=== PATIENT | female | born 2000 | race Caucasian/White ===

== ENCOUNTER 2024-10-08 17:18 | Outpatient (CLI) | payer OTHER, SELFPAY ==
[2024-10-08] VITALS (8 sets, daily range): BP systolic 128–140; BP diastolic 81–96; PULSE 84–103; BMI 31.6
[2024-10-08 18:07] LABS: Basophils Absolute Auto 0.1 K/mm3 (0.0-0.1); Basophils Percent Auto 0.4 % (0.2-1.2); Eosinophils Absolute Auto 0.1 K/mm3 (0-0.3); Eosinophils Percent Auto 0.5 % (0-4.4); Hematocrit 32.7 % (37.0-47.0); Hemoglobin 10.6 g/dL (12.0-15.0); Immature Granulocyte Absolute 0.09 K/mm3 (0.00-0.031); Immature Granulocyte Percent A 0.7 % (0-0.5); Lymphocytes Absolute Auto 2.72 K/mm3 (0.9-3.2); Mean Corpuscular HGB Conc 32.4 g/dl (32-36); Mean Corpuscular Hemoglobin 26.8 pg (26-34); Mean Corpuscular Volume 82.8 fl (80-100); Mean Platelet Volume 10.6 fl (7.4-10.4); Monocytes Absolute Auto 1.1 K/mm3 (0.1-0.6); Monocytes Percent Auto 8.2 % (2.6-8.5); Neutrophils Absolute Auto 8.9 K/mm3 (1.3-6.7); Neutrophils Percent Auto 69.2 % (45.5-73.1); Platelet Count Result 283 k/mm3 (150-375); Red Blood Count 3.95 M/mm3 (4.2-5.4); Red Cell Distribution Width 13.5 % (11.5-14.5); White Blood Count 12.9 K/mm3 (4.5-10.0)
[2024-10-08 18:12] LABS: Add Urine Microscopic? YES; Appearance Urine Clear (Clear); Bacteria Urine None Seen /hpf; Bilirubin Urine Negative (Negative); Blood Urine Negative (Negative); Color Urine Yellow (Yellow); Glucose Urine UA 1+ mg/dL (Negative); Ketones Urine Negative (Negative); Leukocyte Esterase Ur Trace LEU/UL (Negative); Nitrate Urine Negative (Negative); Non Pathogenic Casts 0-2; Protein Urine Negative (Negative); RBC Urine 0-2 /hpf (0-2); Specific Grav Ur 1.005 (1.001-1.035); Squamous Epithelial Cell Urine Occasional /hpf (Few); Urobilinogen Urine 0.2 mg/dL (<2.0); pH Urine 6.5 (5.0-9.0)
[2024-10-08 18:17] LABS: Alanine Aminotransferase 16 U/L (6-35); Albumin Level 3.4 g/dL (3.5-5.1); Alkaline Phosphatase 125 U/L (38-126); Anion Gap 11 mmol/L (4-12); Aspartate Amino Transferase 19 U/L (14-36); Bilirubin,Total 0.3 mg/dL (0.2-1.3); Blood Urea Nitrogen 7 mg/dL (7-17); Calcium 8.6 mg/dL (8.4-10.2); Carbon Dioxide 19 mmol/L (22-30); Chloride 105 mmol/L (98-107); Estimated Glomerular Filt Rate > 60; Glucose 115 mg/dL (65-110); Potassium 3.6 mmol/L (3.4-5.0); Sodium 135 mmol/L (137-145); Uric Acid 3.5 mg/dL (2.5-7.5)
[2024-10-08 18:18] LABS: Creatinine Urine 23.4 mg/dL; Total Protein Urine Random 27 mg/dL; Ur Ttl Prot Creatinine Ratio 1.15 mg/mg (0-0.20)
== END 2024-10-08 19:50 | disposition home or self-care (01) ==
LOC: ANHOBOP 17:24 → ANHOBPP 17:26
PROVIDERS: PCP Emergency Medicine; Visit Provider Obstetrics & Gynecology
DX: O13.9 Gestational [pregnancy-induced] hypertension without significant proteinuria, unspecified trimester (principal); Z3A.00 Weeks of gestation of pregnancy not specified
CPT/HCPCS: 36415; 59025; 80053; 81001; 82570; 84156; 84550; 85025; 87086

== ENCOUNTER 2024-10-20 11:47 | Outpatient (RCR) | payer OTHER, SELFPAY ==
[2024-10-10 10:55] VITALS: BP 132/82; PULSE 88
[2024-10-13 12:37] VITALS: BP 132/81; PULSE 85
[2024-10-17 09:56] LABS: Basophils Percent Auto 0.3 % (0.2-1.2); Eosinophils Absolute Auto 0.1 K/mm3 (0-0.3); Eosinophils Percent Auto 0.7 % (0-4.4); Hematocrit 35.4 % (37.0-47.0); Immature Granulocyte Absolute 0.13 K/mm3 (0.00-0.031); Lymphocytes Absolute Auto 2.76 K/mm3 (0.9-3.2); Lymphocytes Percent Auto 20.6 % (18.3-44.2); Mean Corpuscular HGB Conc 31.1 g/dl (32-36); Mean Corpuscular Hemoglobin 26.4 pg (26-34); Mean Corpuscular Volume 84.9 fl (80-100); Mean Platelet Volume 10.9 fl (7.4-10.4); Monocytes Absolute Auto 0.8 K/mm3 (0.1-0.6); Monocytes Percent Auto 5.6 % (2.6-8.5); Neutrophils Absolute Auto 9.7 K/mm3 (1.3-6.7); Neutrophils Percent Auto 71.8 % (45.5-73.1); Platelet Count Result 275 k/mm3 (150-375); Red Blood Count 4.17 M/mm3 (4.2-5.4); Red Cell Distribution Width 14.5 % (11.5-14.5); White Blood Count 13.4 K/mm3 (4.5-10.0)
[2024-10-17 10:06] LABS: Alanine Aminotransferase 17 U/L (6-35); Albumin Level 3.2 g/dL (3.5-5.1); Alkaline Phosphatase 141 U/L (38-126); Anion Gap 8 mmol/L (4-12); Aspartate Amino Transferase 19 U/L (14-36); Bilirubin,Total 0.3 mg/dL (0.2-1.3); Blood Urea Nitrogen 7 mg/dL (7-17); Calcium 8.9 mg/dL (8.4-10.2); Carbon Dioxide 22 mmol/L (22-30); Chloride 105 mmol/L (98-107); Estimated Glomerular Filt Rate > 60; Glucose 137 mg/dL (65-110); Potassium 4.5 mmol/L (3.4-5.0); Sodium 135 mmol/L (137-145); Uric Acid 3.6 mg/dL (2.5-7.5)
[2024-10-17 10:16] VITALS: BP 128/86; PULSE 91
--- NOTE | ~2024-10-20 | US_ITS ---
EXAMINATION: US OB BPP wo non-stress DATE: 10/13/2024 13:06 INDICATION: Preeclampsia. Assess amniotic fluid index. TECHNIQUE: Real-time pelvic ultrasound was performed. The interpreting radiologist was not present fo r the study. COMPARISON: None. FINDINGS: There is a single living fetus in vertex presentation. The placenta is anterior and not low-lying. F etal heart rate is 146 beats per minute (bpm). Normal amniotic fluid index measuring 22.2 cm (5th%-95 %: 7.9-24.9 cm at C5 weeks estimated gestational age) Biophysical profile performed by the technologist: breathing (30 sec sustained breathing in 30 minutes): 2 out of 2 movement (3 gross body movements in 30 minutes): 2 out of 2 tone (one episode of rmbvmcd-yokcmawzj-jxnwwrn limb movement): 2 out of 2 Amniotic fluid pocket (2 cm): 2 out of 2 Total score: 8 out of 8 IMPRESSION: 1. Single living fetus in vertex presentation with heart rate of 146 bpm. 2. Biophysical profile 8 out of 8. 3. Normal amniotic fluid index of 22.2 cm. Reviewed, dictated and finalized at location B. SUPPLIER
--- NOTE | ~2024-10-20 | US_ITS ---
EXAMINATION: US OB BPP wo non-stress DATE: 10/10/2024 10:54 INDICATION: Preeclampsia. Third trimester. TECHNIQUE: Real-time pelvic ultrasound was performed. COMPARISON: Ultrasound 10/01/2024 FINDINGS: There is a single living fetus in vertex presentation. The placenta is anterior. heart rate is 159 beats per minute (bpm). Biophysical profile performed by the technologist: breathing (30 sec sustained breathing in 30 minutes): 2 out of 2 movement (3 gross body movements in 30 minutes): 2 out of 2 tone (one episode of ktpfmas-wspjgtatv-iofcqjm limb movement): 2 out of 2 Amniotic fluid pocket (2 cm): 2 out of 2 Total score: 8 out of 8 IMPRESSION: 1. Single living fetus in vertex presentation. 2. Biophysical profile 8 out of 8. Reviewed, dictated and finalized at location B. UNITY LIFE DIRECTOR
--- NOTE | ~2024-10-20 | US_ITS ---
EXAMINATION: US OB BPP wo non-stress DATE: 10/20/2024 13:36 INDICATION: Preeclampsia during third trimester TECHNIQUE: Real-time pelvic ultrasound was performed. The interpreting radiologist was not present fo r the study. COMPARISON: None. FINDINGS: There is a single living fetus in vertex presentation. The placenta is anterior. heart rate is 150 beats per minute (bpm). Biophysical profile performed by the technologist: breathing (30 sec sustained breathing in 30 minutes): 2 out of 2 movement (3 gross body movements in 30 minutes): 2 out of 2 tone (one episode of dkfjyre-fcpudpmxl-oavonfi limb movement): 2 out of 2 Amniotic fluid pocket (2 cm): 2 out of 2 Total score: 8 out of 8 IMPRESSION: 1. Single living fetus in vertex presentation with heart rate of 150 bpm. 2. Biophysical profile 8 out of 8. Reviewed, dictated and finalized at location B. RANCE ASSOCIATE
[2024-10-20 13:04] VITALS: BP 135/83; PULSE 107
== END 2024-11-14 16:47 | disposition home or self-care (01) ==
LOC: ANHOBOP 11:47
PROVIDERS: Obstetrics & Gynecology; PCP Emergency Medicine; Visit Provider Obstetrics & Gynecology
DX: O14.90 Unspecified pre-eclampsia, unspecified trimester (principal)
CPT/HCPCS: 36415; 59025; 76819; 80053; 84550; 85025

== ENCOUNTER 2024-10-23 21:13 | Inpatient (IN) | payer OTHER, SELFPAY ==
[2024-10-22] VITALS (17 sets, daily range): BP systolic 124–150; BP diastolic 67–110; PULSE 81–116; TEMP 36.6–36.8; BMI 31.8
[2024-10-22 17:46] LABS: Basophils Percent Auto 0.3 % (0.2-1.2); Eosinophils Absolute Auto 0.1 K/mm3 (0-0.3); Eosinophils Percent Auto 0.8 % (0-4.4); Hemoglobin 10.9 g/dL (12.0-15.0); Immature Granulocyte Absolute 0.07 K/mm3 (0.00-0.031); Immature Granulocyte Percent A 0.6 % (0-0.5); Lymphocytes Absolute Auto 2.69 K/mm3 (0.9-3.2); Lymphocytes Percent Auto 22.8 % (18.3-44.2); Mean Corpuscular HGB Conc 32.1 g/dl (32-36); Mean Corpuscular Hemoglobin 26.5 pg (26-34); Mean Corpuscular Volume 82.7 fl (80-100); Mean Platelet Volume 11.1 fl (7.4-10.4); Monocytes Absolute Auto 0.9 K/mm3 (0.1-0.6); Monocytes Percent Auto 7.6 % (2.6-8.5); Neutrophils Percent Auto 67.9 % (45.5-73.1); Nucleated Red Blood Cells Perc 0.2 % (0.0-0.2); Platelet Count Result 301 k/mm3 (150-375); Red Blood Count 4.11 M/mm3 (4.2-5.4); Red Cell Distribution Width 14.6 % (11.5-14.5); White Blood Count 11.8 K/mm3 (4.5-10.0)
[2024-10-22] MEDS: DINOPROSTONE 10 MG VAG INSERT VAGINAL (17:56)
[2024-10-22 17:57] LABS: Alanine Aminotransferase 18 U/L (6-35); Albumin Level 3.3 g/dL (3.5-5.1); Alkaline Phosphatase 145 U/L (38-126); Anion Gap 11 mmol/L (4-12); Aspartate Amino Transferase 19 U/L (14-36); Bilirubin,Total 0.3 mg/dL (0.2-1.3); Blood Urea Nitrogen 8 mg/dL (7-17); Calcium 8.9 mg/dL (8.4-10.2); Carbon Dioxide 20 mmol/L (22-30); Chloride 104 mmol/L (98-107); Estimated Glomerular Filt Rate > 60; Glucose 151 mg/dL (65-110); Potassium 3.5 mmol/L (3.4-5.0); Sodium 135 mmol/L (137-145)
--- NOTE | 2024-10-22 18:00 | LDADM ---
This patient, Kishore Booth, was admitted to Labor/Delivery/Recovery 104 on 10/22/24 at 16:50. Plans for labor, pain management and were discussed with patient. Patient/family oriented to hospital policies and general routines including ID bracelet, bed and alarms, visiting hours, pain management, procedures, bathroom and other care routines, personal items, smoking policy, room service/diet and guest tray routines, infant security routines, and visiting hours. Patient/Family are encouraged to report perceived risks to care and to ask questions if they do not understand what they are told or what they should do. See OBIX for further documentation.
[2024-10-22 18:07] LABS: Uric Acid 3.6 mg/dL (2.5-7.5)
[2024-10-22 18:19] LABS: Rapid Plasma Reagin Non-Reactive (NonReactive)
[2024-10-22] MEDS: LACTATED RINGERS 1,000 ML 125 ML IV CONT (18:26)
[2024-10-22] MEDS: AMPICILLIN 2 GM/NS 100 ML 2 GM/100 ML BAG IVPB (18:26)
[2024-10-22 18:37] LABS: HIV 1/2 Ab P24 Ag Result Negative (Negative)
[2024-10-23] VITALS (333 sets, daily range): BP systolic 99–150; BP diastolic 50–108; PULSE 52–166; RESP 12–21; TEMP 36.4–36.9; O2SAT 93–100
[2024-10-23] MEDS: fentaNYL CITRATE INJ (*CRX) 100 MCG/2 ML VIAL 50 MCG IV PUSH (01:03)
--- NOTE | 2024-10-23 03:00 | P.PNAN_ITS ---
Anes - Initial Pre Proc Eval Procedure: labor epidural Date/Time: 10/23/24 03:00 Surgeon: Brenda Cancino MD Pre Op Diagnosis: labor pain Pre Op Diagnosis: IOL Patient Data Age: 24 Gender: F Height: 1.68 m Weight: 89.5 kg Last Vital Signs Temp 36.6 C 10/22/24 19:00 Pulse 83 10/23/24 02:57 BP 131/83 10/23/24 02:57 Pulse Ox 98 10/23/24 02:55 O2 Del Method Room Air 10/22/24 17:59 Allergies Allergy/AdvReac Type Severity Reaction Status Date / Time nesquick Allergy hives Uncoded 10/21/24 08:04 Home Medications ?Medication ?Instructions ?Recorded ?Confirmed ?Type docosahexaenoic acid 200 mg 200 mg PO DAILY 07/02/24 10/22/24 History capsule ( DHA) ferrous sulfate 325 mg (65 mg 325 mg PO DAILY 10/08/24 10/22/24 History iron) tablet (Feosol) famotidine 20 mg tablet (Acid 20 mg PO HS 10/15/24 10/22/24 History Controller) Laboratory Tests 10/22/24 10/22/24 17:03 17:03 WBC 11.8 H K/mm3 (4.5-10.0) RBC 4.11 L M/mm3 (4.2-5.4) Hgb 10.9 L g/dL (12.0-15.0) Hct 34.0 L % (37.0-47.0) MCV 82.7 fl (80-100) MCH 26.5 pg (26-34) MCHC 32.1 g/dl (32-36) RDW 14.6 H % (11.5-14.5) Plt Count 301 k/mm3 (150-375) MPV 11.1 H fl (7.4-10.4) Immature Gran % (Auto) 0.6 H % (0-0.5) Neut % (Auto) 67.9 % (45.5-73.1) Lymph % (Auto) 22.8 % (18.3-44.2) [place] % (Auto) 7.6 % (2.6-8.5) Eos % (Auto) 0.8 % (0-4.4) Baso % (Auto) 0.3 % (0.2-1.2) Lymph # (Auto) 2.69 K/mm3 (0.9-3.2) [place] # (Auto) 0.9 H K/mm3 (0.1-0.6) Eos # (Auto) 0.1 K/mm3 (0-0.3) Baso # (Auto) 0.0 K/mm3 (0.0-0.1) Abs Immat Gran (auto) 0.07 H K/mm3 (0.00-0.031) Absolute Neuts (auto) 8.0 H K/mm3 (1.3-6.7) Absolute Nucleated RBC 0.020 H K/mm3 (0.0-0.012) Nucleated RBC % 0.2 % (0.0-0.2) Sodium 135 L mmol/L (137-145) Potassium 3.5 mmol/L (3.4-5.0) Chloride 104 mmol/L (98-107) Carbon Dioxide 20 L mmol/L (22-30) Anion Gap 11 mmol/L (4-12) BUN 8 mg/dL (7-17) Creatinine 0.49 L mg/dL (0.7-1.0) Estim Creat Clear Calc Not Reportable Estimated GFR > 60 (59 - ) Glucose 151 H mg/dL (65-110) Uric Acid Cancelled 3.6 mg/dL (2.5-7.5) Calcium 8.9 mg/dL (8.4-10.2) Total Bilirubin 0.3 mg/dL (0.2-1.3) AST 19 U/L (14-36) ALT 18 U/L (6-35) Alkaline Phosphatase 145 H U/L (38-126) Total Protein 7.0 g/dL (6.3-8.2) Albumin 3.3 L g/dL (3.5-5.1) RPR Non-reactive (NonReactive) HIV 1&2 Ab/P24 Ag 4thGn Negative (Negative) Blood Type A Positive Antibody Screen Negative Patient hx anesthesia problems: none Family hx anesthesia problems: none Results Review: All pre-operative results and documents have been reviewed as part of the pre- operative evaluation. [facility] Past Medical History Medical History (Updated 10/22/24 @ 17:07 by Brenda Cancino MD) Pre-eclampsia Abnormal glucose tolerance in Depression Anxiety Surgical History Surgical History H/O wisdom tooth extraction Family History Family History Father Depression Mother Depression Hypertension Hyperlipidemia Grandparent Alcohol abuse Cancer Social History Social History Smoking status: Former smoker Tobacco type: e-cigarettes/vaping Smoking end date: 01/16/24 Alcohol intake: former Substance use: never Substance use type: marijuana Last use: January 2024 Do You Feel Safe in your Home?: Yes Lack of Transportation: No Lack of Food: Never True Current Housing: I Have Housing Concerned About Future Housing: No Difficulty Paying Gas/Electric Bills: No Difficulty Paying for Meds: No Currently Unemployed: No Education: Trade/Vocational Certificate Difficulty w/ Childcare or Family Care: No Living arrangements: with family Occupation/Education: occupation Additional occupation/education comments: [employer] Gender identity (if verbalized by the patient): Female Sexual Orientation (if Verbalized by the Patient): Straight or Heterosexual Spiritual care concerns: No Anes - Eval Final PreProcedure Day of Procedure 10/23/24 03:00 Patient weight: normal Heart: regular rate and rhythm Lungs: normal air movement Airway: Mallampati scale class II Neurological: alert and oriented ASA classification: II Anesthetic plan: proceed Anesthesia type and monitoring: regional epidural and standard monitoring Results Review: All pre-operative results and documents have been reviewed as part of the pre- operative evaluation. Informed Consent: The patient's anesthetic plan and its attendant risks and benefits were discussed with the patient/family/POA. Questions were solicited and answers provided to the satisfaction of the patient/family/POA.
[2024-10-23] MEDS: LACTATED RINGERS 1,000 ML 125 ML IV CONT ×3 (03:27→18:31)
[2024-10-23] MEDS: AMPICILLIN 1 GM/NS 50 ML 1 GM/50 ML BAG IVPB ×6 (04:00→20:25)
--- NOTE | 2024-10-23 07:01 | P.HP_ITS ---
H&P: HPI History of Present Illness Date/Time: 10/22/24 17:04 Chief Complaint: medical IOL Narrative: Kishore is a 24yo @ 37.1wks who presented overnight for medical IOL due to a diagnosis of pre-eclampsia without severe features. She has been undergoing testing twice weekly (2x/wk NST, weekly BPP/blood work)-- which has all been reassuring. She denies any symptoms of severe features. She feels good movement. No vaginal bleeding or leakage of fluid. Her is complicated by: - Late care, first visit @ 22wk - Depression/anxiety w/ h/o suicide attempt- no meds - Non-immune to CMV, varicella, rubella - Pre-eclampsia w/o severe features; twice weekly NST/ weekly labs/BPP, IOL 37wks - GBS positive - Elevated 1 hour; 3 hour not completed Review of Systems Constitutional: Constitutional: Denies chills, Denies fever(s) and Denies headache(s) Eyes: Eyes: Denies change in vision ENT: Denies headache(s) Cardiovascular: Cardiovascular: Denies chest pain and Denies dyspnea Respiratory: Respiratory: Denies dyspnea Genitourinary: Genitourinary: Denies abnormal vaginal bleeding and Denies vaginal discharge Neurologic: Denies headache(s) Psychiatric: Psychiatric: Denies anxiety and Denies depression [facility] Past Medical History Medical History (Updated 10/22/24 @ 17:07 by Brenda Cancino MD) Pre-eclampsia Abnormal glucose tolerance in Depression Anxiety Surgical History Surgical History H/O wisdom tooth extraction Family History Family History Father Depression Mother Depression Hypertension Hyperlipidemia Grandparent Alcohol abuse Cancer Social History Social History Smoking status: Former smoker Tobacco type: e-cigarettes/vaping Smoking end date: 01/16/24 Alcohol intake: former Substance use: never Substance use type: marijuana Last use: January 2024 Do You Feel Safe in your Home?: Yes Lack of Transportation: No Lack of Food: Never True Current Housing: I Have Housing Concerned About Future Housing: No Difficulty Paying Gas/Electric Bills: No Difficulty Paying for Meds: No Currently Unemployed: No Education: Trade/Vocational Certificate Difficulty w/ Childcare or Family Care: No Living arrangements: with family Occupation/Education: occupation Additional occupation/education comments: [employer] Gender identity (if verbalized by the patient): Female Sexual Orientation (if Verbalized by the Patient): Straight or Heterosexual Spiritual care concerns: No Meds Home Medications and Allergies Home Medications ?Medication ?Instructions ?Recorded ?Confirmed ?Type docosahexaenoic acid 200 mg 200 mg PO DAILY 07/02/24 10/22/24 History capsule ( DHA) ferrous sulfate 325 mg (65 mg 325 mg PO DAILY 10/08/24 10/22/24 History iron) tablet (Feosol) famotidine 20 mg tablet (Acid 20 mg PO HS 10/15/24 10/22/24 History Controller) Allergies Allergy/AdvReac Type Severity Reaction Status Date / Time nesquick Allergy hives Uncoded 10/21/24 08:04 Exam Const: General: cooperative, healthy appearing, comfortable and no acute dis tress Orientation/consciousness: patient oriented x3 Resp: Effort & Inspection: normal respiratory effort Cardio: Rate: regular rate GI: GI Palp: No abdominal tenderness : Other: FHT's: 140's/ mod cecilia/ + accels/ no decels - cat 1 TOCO: ctxs q2-3min Cervix: 3.5/50/-3 Membranes: AROM @ 0712, clear, copious Presentation: cephalic Skin: General skin exam: normal color Neuro: General: patient oriented x3 Extrem: General: normal to inspection Psych: Appearance: grossly normal Affect: normal affect Attitude: cooperative Assessment and Plan Assessment and plan (1) Pre-eclampsia: Qualifiers: Trimester: third trimester Qualified Code(s): O14.93 - Unspecified pre- eclampsia, third trimester Code(s): O14.90 - Unspecified pre-eclampsia, unspecified trimester Status: Acute (2) Positive GBS test: Code(s): B95.1 - Streptococcus, group B, as the cause of diseases classified elsewhere Status: Acute Plan - Medical IOL due to pre-eclampsia indicated as she is 37 weeks - S/p cervidil overnight; cervix favorable - AROM, clear-- IUPC placed on this exam - High dose pitocin per protocol - Pt asymptomatic, BPs in normal/moderate range; anti-hypertensives per protocol and magnesium sulfate with any severe range BPs - Continuous monitoring; currently reassuring - GBS positive; getting ampicillin per protocol - Anesthesia consult PRN pain
[2024-10-23] MEDS: OXYTOCIN 30 UNITS/NS 500 ML 30 UNITS/500 ML BAG 6 UNITS IV CONT (07:03)
[2024-10-23] MEDS: FAMOTIDINE 20 MG/2 ML VIAL IV PUSH ×2 (08:17→21:25)
--- NOTE | 2024-10-23 11:48 | PM.OBPNLAB ---
Pain Control Date/time seen: 10/23/24 11:48 Pain control: epidural Pelvic Exam Dilation (cm): 5 Effacement (%): 70 station: -3 Amniotic membrane status: Ruptured (AROM, clear) Contractions Monitor mode: Internal Contraction frequency: 2 Contraction pattern: Irregular Contraction intensity: Moderate Status status: Category l Assessment and Plan Pitocin rate (mU/min): 6 Assessment: induction ongoing Plan: continuous present management Comments: - contractions adequate strength, but pattern has been slightly irregular with tripling/coupling, now more regular - head asynclitic and attempted to be rotated, ROT now - Has had some decelerations, but overall reassuring now - making good cervical change otherwise - asymptomatic; bps in normal range - continue gbs ppx
[2024-10-23] MEDS: SODIUM CHLORIDE 0.9% IV 300 ML 600 ML I-UTERINE (15:18)
[2024-10-23] MEDS: CALCIUM CARBONATE (TUMS) 500 MG (200 MG ELEMENTAL) PO (16:49)
--- NOTE | 2024-10-23 16:56 | PM.OBPNLAB ---
Pain Control Date/time seen: 10/23/24 16:56 Pain control: epidural Pelvic Exam Dilation (cm): 6 Effacement (%): 80 station: -2 Amniotic membrane status: Ruptured (AROM, clear) Contractions Monitor mode: Internal Contraction frequency: 2 Contraction pattern: Irregular Contraction intensity: Moderate Status status: Category ll Comments: occasional periods of minimal variability; but responded to position change/cervical check Have also had intermittent decelerations Assessment and Plan Pitocin rate (mU/min): 10 Assessment: active labor Plan: continuous present management Comments: - monitoring tracing closely; overall category 2 but reassuring - discussed pt now 6cm and needs to continue to make cervical change; plan for recheck in 2 hours; if no change in 4 hours, will be for as her MVU's are adequate
[2024-10-23] MEDS: ONDANSETRON INJ 4 MG/2 ML VIAL IV PUSH (18:06)
--- NOTE | 2024-10-23 21:20 | PM.OBPNLAB ---
Pain Control Date/time seen: 10/23/24 21:20 Pain control: epidural Pelvic Exam Dilation (cm): 6 Effacement (%): 80 station: -2 Amniotic membrane status: Ruptured (AROM, clear) Contractions Monitor mode: Internal Contraction frequency: 2 Contraction pattern: Irregular Contraction intensity: Moderate Status status: Category ll Assessment and Plan Plan: Comments: she has been ruptured with IUPC and pitocin augmentation with adequate contractions without any cervical casino change attendant the last 4 hours-- now meeting criteria for arrest of active phase
--- NOTE | 2024-10-23 21:22 | WPDHPUPDATE1 ---
History and Physical Update Update Date/Time: 10/23/24 21:22 History and Physical has been reviewed, including an updated exam of the patient. There are NO changes in the patient's condition. Risks, benefits, and alternatives have been discussed and questions answered. Patient agrees to proceed with primary section.
[2024-10-23] MEDS: ACETAMINOPHEN 500 MG TABLET 1000 MG PO (21:25)
[2024-10-23] MEDS: AZITHROMYCIN 500 MG/NS 250 ML 500 MG/250 ML BAG 250 MG IVPB (21:33)
[2024-10-23] MEDS: ceFAZolin 2 GM/D5W 50 ML 2 GM/50 ML BAG IVPB (21:33)
--- NOTE | 2024-10-23 22:35 | W.PM.OBCSD ---
OB - Delivery Note Procedure Delivery date: 10/23/24 Pre-op diagnosis: Arrest of Dilation, Decelerations, Positive Group B Strep (GBS) and Preeclampsia w/o severe features Post-op Diagnosis: Same Induction method: Per Cervidil Protocol Delivery augmentation: Rupture of Membranes and Pitocin Delivery monitor: External FHT and Internal Uterine Prior to decision for section, ACOG/SMFM labor guidelines were considered and discussed with the patient and staff. Decision made to proceed with the section.: Yes Procedure Performed: Primary Primary branch: low cervical, transverse Surgeon: Brenda Cancino MD Anesthesia type: Epidural Description of Procedure/Findings: Male , direct OP position, nuchal cord x2 (loose and reduced), clear fluid. Normal fallopian tubes and ovaries bilaterally. Good hemostasis at end of case. Specimen: Yes (placenta) Estimated Blood Loss: 320 IV Fluids: 1,500 Urine Output: 125 Pathology: Yes Complications: No immediate complications Condition: Stable Disposition: Floor [place] Baby Date of : 10/23/24 Time of : 22:02 Gestational Age by Date: 37 (.1) Infant gender: Male Weight (pounds): 7 Weight (ounces): 2 presentation: vertex position: Other (direct OP) Placenta delivery description: Expressed Cord Vessel Description: 3 Vessels, Nuchal Cord (x2), Reduced and Delayed Cord Clamping Narrative: Kishore was counseled on all risks and benefits in detail. She was taken to the operating room where epidural was found to be adequate. She was then prepped and draped in the normal sterile fashion. She received 2g Ancef and 500mg Azithromycin a time out was performed. A Pfannenstiel incision was made in the skin and carried down to the underlying fascia. The fascia was nicked on either side of the midline and the fascial incision was extended laterally and superiorly using curved Haile scissors. The fascia was then elevated using Josseline clamps and the underlying rectus muscles were dissected off the fascia, superiorly and inferiorly. The rectus muscles were then in the midline and the peritoneum was entered bluntly. Once adequate exposure was obtained, a Mobius self retractor was placed within the abdomen. A bladder flap was created. A low transverse incision was made on the lower uterine segment and clear fluid was noted. The occiput was brought to the hysterotomy and the head was easily delivered. Nuchal cord x2 was noted and easily reduced. The shoulders and body then followed without complications. The had spontaneous cry and the mouth and nose were bulb suctioned. Delayed cord clamping was performed. The cord was then doubly clamped and cut and the infant was handed off to the awaiting pediatric nurse. A segment of the cord was collected for cord gases. The remaining cord blood was collected for typing. With Pitocin infusing, the placenta delivered with gentle traction on the cord without complications. The uterus was then cleared out of all clots and debris using a clean, moist lap. The hysterotomy was then repaired in a running fashion using 0 Vicryl. A second layer imbricating suture was then made using 0 Vicryl. A figure of eight stitch using 0- Vicryl was placed on the right side of the hysterotomy and it was then found to be hemostatic and good uterine tone was noted. The bilateral adnexa were examined and found to be normal. The pelvis was cleared of all clots and fluid. The Mobius retractor was removed from the abdomen. The peritoneum, muscle, and fascia were examined and made hemostatic with Bovie cautery. The fascia was then repaired using a 0 Vicryl suture in a running fashion. The subcutaneous tissue was then irrigated and made hemostatic with Bovie cautery. The subcutaneous tissue was then reapproximated using 2-0 Vicryl. The skin was then closed using 4-0 Monocryl in a running subcuticular fashion. A dressing was then placed over her incision. Sponge, lap, needle and instrument counts were correct at the end of the procedure x2. The patient tolerated the procedure well and was taken to recovery in a stable condition.
[2024-10-23] MEDS: OXYTOCIN 30 UNITS/NS 500 ML 30 UNITS/500 ML BAG 125 UNITS IV CONT (23:15)
[2024-10-24] VITALS (33 sets, daily range): BP systolic 117–153; BP diastolic 75–92; PULSE 70–109; RESP 14–20; TEMP 36.4–37; O2SAT 95–99
[2024-10-24] MEDS: ACETAMINOPHEN 325 MG TABLET 650 MG PO ×4 (04:22→21:29)
[2024-10-24] MEDS: KETOROLAC 15 MG/ML VIAL (*BKC) IV PUSH ×4 (04:22→21:29)
[2024-10-24] MEDS: DEXTROSE 5%/0.45% SOD CHL 1,000 ML 125 ML IV CONT (04:40)
[2024-10-24 06:04] LABS: Basophils Absolute Auto 0.1 K/mm3 (0.0-0.1); Basophils Percent Auto 0.3 % (0.2-1.2); Eosinophils Percent Auto 0.1 % (0-4.4); Hematocrit 28.1 % (37.0-47.0); Hemoglobin 8.7 g/dL (12.0-15.0); Immature Granulocyte Absolute 0.08 K/mm3 (0.00-0.031); Immature Granulocyte Percent A 0.5 % (0-0.5); Lymphocytes Absolute Auto 2.81 K/mm3 (0.9-3.2); Lymphocytes Percent Auto 17.1 % (18.3-44.2); Mean Corpuscular Hemoglobin 25.9 pg (26-34); Mean Corpuscular Volume 83.6 fl (80-100); Monocytes Absolute Auto 0.7 K/mm3 (0.1-0.6); Monocytes Percent Auto 4.1 % (2.6-8.5); Neutrophils Absolute Auto 12.8 K/mm3 (1.3-6.7); Neutrophils Percent Auto 77.9 % (45.5-73.1); Platelet Count Result 225 k/mm3 (150-375); Red Blood Count 3.36 M/mm3 (4.2-5.4); Red Cell Distribution Width 14.7 % (11.5-14.5); White Blood Count 16.4 K/mm3 (4.5-10.0)
[2024-10-24 06:22] LABS: Alanine Aminotransferase 13 U/L (6-35); Albumin Level 2.3 g/dL (3.5-5.1); Alkaline Phosphatase 105 U/L (38-126); Anion Gap 8 mmol/L (4-12); Aspartate Amino Transferase 20 U/L (14-36); Bilirubin,Total 0.4 mg/dL (0.2-1.3); Blood Urea Nitrogen 5 mg/dL (7-17); Calcium 7.8 mg/dL (8.4-10.2); Carbon Dioxide 21 mmol/L (22-30); Chloride 103 mmol/L (98-107); Estimated CRCL calculation 156 ml/min; Estimated Glomerular Filt Rate > 60; Glucose 129 mg/dL (65-110); Potassium 3.6 mmol/L (3.4-5.0); Sodium 132 mmol/L (137-145)
[2024-10-24] MEDS: DOCUSATE SODIUM 100 MG CAPSULE PO ×2 (07:40→16:06)
[2024-10-24] MEDS: SIMETHICONE 80 MG TAB.CHEW PO ×3 (07:40→16:06)
[2024-10-24] MEDS: POLYSACCHARIDE IRON COMPLEX 150 MG CAPSULE PO ×2 (07:40→16:06)
[2024-10-24] MEDS: MULTIVIT/MIN/PREN/FOL AC/IRON TABLET 1 TAB PO (07:48)
--- NOTE | 2024-10-24 08:30 | PC.NURSE ---
Patient was given a breast pump by the night RN. She was pumping for the first time this morning. We reviewed pumping schedule, settings, and storage of breast milk. Labels and pumping log given. Mom is hoping to go to the NICU on a pass today and will take pumped milk with her. Pump parts washed and air drying for next session. Mom knows to call out for any assistance or questions. Name/number on communication board. Reported to primary RN.
--- NOTE | 2024-10-24 10:44 | WPDANLDPN2 ---
Anes-Prog Note L&D Date/Time: 10/24/24 10:44 Comfortable throughout: labor and section Neuraxial method: epidural Epidural/Spinal procedure site: clean & non-tender Neuro status: Neuro function grossly intact. Cardiovascular status: normal Respiratory status: normal Airway patency: baseline Mental status: baseline Post-Op hydration status: normal Vital Signs: Last Vital Signs Temp 98.6 F 10/24/24 07:40 Pulse 73 10/24/24 07:40 Resp 18 10/24/24 07:40 BP 117/76 10/24/24 07:40 Pulse Ox 98 10/24/24 07:40 O2 Del Method Room Air 10/24/24 02:36 Pain score (VAS): 0/10 I/O: Intake & Output 10/23/24 10/24/24 10/24/24 23:59 07:59 15:59 Intake Total 2685.4 400 Output Total 570 2230 Balance 2115.4 -1830 Post-procedural complaints: none Patient feedback: Patient satisfied with anesthetic care.
--- NOTE | 2024-10-24 10:44 | WPDANLDNPN2 ---
Anes-Prog Note L&D-Neuraxial Date/Time: 10/24/24 10:44 Neuraxial medications: epidural PF morphine Opiod-related complaints: none Patient feedback: Patient satisfied with post-operative pain management.
--- NOTE | 2024-10-24 13:16 | PM.OBDSVD ---
DS: Admitting Diagnosis Discharge Date 10/25/2024 Admitting Diagnosis DS: Discharge Diagnosis Discharge Diagnosis (1) , delivered: Code(s): O80 - Encounter for full-term uncomplicated delivery Status: Acute OB - DS: Summary OB Procedures : None OB Procedures Intrapartum: OB Procedures: : None Peripartum Data Procedures: Procedures Operation Date: 10/23/24 21:30 Actual Procedure Side Surgeon p Section Not Applicable Brenda Cancino MD Time Spent with Patient Time attestation: Total time spent providing and/or coordinating discharge services: DS: Data Data Completed and Pending Pending studies at discharge: Pending at discharge 10/23/24 23:11 Surgical [PTH] Routine Labs on day of discharge: Labs from last 24 hours 10/24/24 05:05 WBC 16.4 H RBC 3.36 L Hgb 8.7 L Hct 28.1 L MCV 83.6 MCH 25.9 L MCHC 31.0 L RDW 14.7 H Plt Count 225 MPV 11.0 H Immature Gran % (Auto) 0.5 Neut % (Auto) 77.9 H Lymph % (Auto) 17.1 L [place] % (Auto) 4.1 Eos % (Auto) 0.1 Baso % (Auto) 0.3 Lymph # (Auto) 2.81 [place] # (Auto) 0.7 H Eos # (Auto) 0.0 Baso # (Auto) 0.1 Abs Immat Gran (auto) 0.08 H Absolute Neuts (auto) 12.8 H Absolute Nucleated RBC 0.000 Nucleated RBC % 0.0 Sodium 132 L Potassium 3.6 Chloride 103 Carbon Dioxide 21 L Anion Gap 8 BUN 5 L Creatinine 0.53 L Estim Creat Clear Calc 156 Estimated GFR > 60 Glucose 129 H Calcium 7.8 L Total Bilirubin 0.4 AST 20 ALT 13 Alkaline Phosphatase 105 Total Protein 5.0 L Albumin 2.3 L Discharge Plan Discharge Discharging Clinician: Jens Calloway Activity: may shower, no straining, no driving, follow weight bearing status and pelvic rest Diet: as tolerated Wound Care Instructions: incision open to air Discharge Instructions: office sunday or next week for BP check Patient Language: Cymraes Discharge Medications: New hydrocodone-acetaminophen 5-325 mg Tablet 1 tablet PO Q6-8H PRN (Reason: Breakthrough Pain Rated 4-6) Qty: 28 0RF ibuprofen 600 mg Tablet 600 mg PO Q6H Qty: 30 0RF Continued DHA 200 mg capsule 200 mg PO DAILY ferrous sulfate [Feosol] 325 mg (65 mg iron) tablet 325 mg PO DAILY famotidine [Acid Controller] 20 mg tablet 20 mg PO HS Date of admission: 10/23/24 21:13 Primary Care Provider: Dwight Zavaleta Admitting Provider: Brenda Cancino Attending physician on admission: Brenda Cancino Condition: Stable
[2024-10-25 00:05] VITALS: BP 111/73
[2024-10-25] MEDS: HYDROcodone/acetaminophen (*CRX) 5-325 MG TABLET 1 TAB PO ×2 (02:23→07:45)
[2024-10-25] MEDS: IBUPROFEN 600 MG TABLET PO ×2 (03:22→10:45)
[2024-10-25] MEDS: ACETAMINOPHEN 325 MG TABLET 650 MG PO ×2 (03:22→10:45)
[2024-10-25 03:26] VITALS: BP 126/82
[2024-10-25] MEDS: MULTIVIT/MIN/PREN/FOL AC/IRON TABLET 1 TAB PO (07:44)
[2024-10-25] MEDS: POLYSACCHARIDE IRON COMPLEX 150 MG CAPSULE PO (07:44)
[2024-10-25] MEDS: SIMETHICONE 80 MG TAB.CHEW PO (07:44)
[2024-10-25] MEDS: DOCUSATE SODIUM 100 MG CAPSULE PO (07:45)
[2024-10-25] MEDS: LANOLIN (LANSINOH) 7.5 GM CREAM 1 APPLIC TOPICAL (07:45)
[2024-10-25 07:50] VITALS: BP 126/72; PULSE 81; RESP 16; TEMP 36.1; O2SAT 96
--- NOTE | 2024-10-25 10:32 | PM.OBPNVD ---
OB - PN: Subj Subjective Date/time seen: 10/25/24 10:32 Overall patient doing well. Not ready for discharge home yet so will send on a past today so she can see baby. Will discharge from hospital tomorrow. OB - PN: Obj Data Labs 10/24/24 05:05 10/24/24 05:05 OB - PN A/P Time Spent With Patient Time: Total time spent is greater than 50% in coordination of care (as documented) at patient's floor/unit and/or counseling patient:
--- NOTE | 2024-10-25 11:30 | PC.NURSE ---
Consulted with mother concerning needs and she shared her ability to independently use her breast pump. Encouraged consistency with pumping every 3 hours and handout given on common issues, breastmilk storage times, and cleaning your pump. She has a Medela pump for home use. Reinforced understanding of milk production, transition of milk, prevention/relief of engorgement, plugged ducts, mastitis, community resources ([facility] referral faxed), and when to call a provider using the resource of the mom and baby guide. Mother voiced understanding of the information shared, is confident to continue effectively pumping at home, when to call for assistance, denies any additional assistance or education at this time. Reported to the Primary RN.
[2024-10-25] MEDS: MEASLES,MUMPS,RUBELLA VACCINE 0.5 ML VIAL SUB-Q (12:24)
[2024-10-25 12:30] VITALS: BP 127/82; PULSE 85
== END 2024-10-25 13:30 | disposition home or self-care (01) | DRG 540 ==
LOC: ANHOB2 10-24 13:22 → ANHLDR 10-28 10:50
PROVIDERS: Admitting Provider Obstetrics & Gynecology; PCP Emergency Medicine; Visit Provider Obstetrics & Gynecology
PROC: 10D00Z1 Extraction of Products of Conception, Low, Open Approach (ICD-10-PCS; CPT 59514; principal; 2024-10-23 21:30)
DX: O14.94 Unspecified pre-eclampsia, complicating childbirth (principal); Z37.0 Single live birth; Z3A.37 37 weeks gestation of pregnancy; O99.824 Streptococcus B carrier state complicating childbirth; O69.81X0 Labor and delivery complicated by cord around neck, without compression, not applicable or unspecified; O36.8330 Maternal care for abnormalities of the fetal heart rate or rhythm, third trimester, not applicable or unspecified; O62.1 Secondary uterine inertia
CPT/HCPCS: 36415; 80053; 84550; 85025; 86592; 86703; 86850; 86900; 86901; 88307; 90710; A9270; G0432; J0290; J0456; J0690; J1885; J2004; J2274; J2371; J2405; J2590; J2704; J2795; J3010; J7030; J7120